=== PATIENT | female | born 1960 | race Caucasian/White ===

== ENCOUNTER → 2017-09-09 | Outpatient (CLI) | payer OTHER | END | disposition home or self-care (01) | LOC: MAMMO 09:29 | DX: Z12.31 Encounter for screening mammogram for malignant neoplasm of breast (principal) | CPT/HCPCS: 77067 ==

== ENCOUNTER → 2018-11-23 | Outpatient (CLI) | payer OTHER ==
--- NOTE | 2018-11-24 16:06 | RAD ---
DATE: 11/23/2018 EXAM: DIGITAL SCREEN BILAT W/CAD HISTORY: Routine screening COMPARISON: 01/25/2016 and 09/09/2017 mammographic images This study was interpreted with the benefit of Computerized Aided Detection (CAD). Breast Density: SCATTERED The breast parenchyma shows scattered fibroglandular densities. Breast parenchyma level B. FINDINGS: Benign calcification. No masses or distortion. IMPRESSION: Stable BI-RADS CATEGORY: 1 NEGATIVE RECOMMENDED FOLLOW-UP: 12M 12 MONTH FOLLOW-UP PQRS compliance statement: Patient information was entered into a reminder system with a target due date for the next mammogram. Mammography is a sensitive method for finding small breast cancers, but it does not detect them all and is not a substitute for careful clinical examination. A negative mammogram does not negate a clinically suspicious finding and should not result in delay in biopsying a clinically suspicious abnormality. "Our facility is accredited by the [employer] Mammography [employer]."
== END | disposition home or self-care (01) ==
LOC: MAMMO 09:59
PROVIDERS: ATTEND Family Medicine
DX: Z12.31 Encounter for screening mammogram for malignant neoplasm of breast (principal); N64.89 Other specified disorders of breast
CPT/HCPCS: 77067

== ENCOUNTER → 2019-12-15 | Outpatient (CLI) | payer OTHER ==
--- NOTE | 2019-12-15 08:26 | RAD ---
EXAM: Bilateral screening mammogram. HISTORY: 59-year-old female presents for screening mammography. TECHNIQUE: Full-field digital craniocaudal and mediolateral oblique views of both breasts are obtained for evaluation. Computer aided detection was not applied. COMPARISON: 11/23/2018 and 09/09/2017 BREAST PARENCHYMAL DENSITY: Level B - Scattered fibroglandular densities. FINDINGS: There is focal asymmetry within the left axilla which is not seen on prior studies. There are stable areas of asymmetry and nodularity elsewhere within both breasts. There are few benign calcifications. IMPRESSION: BI-RADS Category 0: Incomplete. Additional imaging needed. RECOMMENDATION: Further evaluation with a full field true lateral view and spot compression mediolateral oblique view of the left breast to assess focal asymmetry within the axilla is recommended. Sonographic imaging may also be performed if deemed indicated based on additional mammographic findings. If your mammogram demonstrates that you have dense breast tissue, which could hide abnormalities, and if you have other risk factors for breast cancer that have been identified, you might benefit from supplemental screening tests that may be suggested by your ordering physician. Dense breast tissue, in and of itself, is a relatively common condition. This information is not provided to cause undue concern, but rather to raise your awareness and to promote discussion with your physician regarding the presence of other risk factors, in addition to dense breast tissue. A report of your mammography results will be sent to you and your physician. You should contact your physician if you have any questions or concerns regarding this report. Mammography is a sensitive method for finding small breast cancers, but it does not detect them all and is not a substitute for careful clinical examination. A negative mammogram does not negate a clinically suspicious finding and should not result in delay in biopsying a clinically suspicious abnormality. PQRS compliance statement - Patient information was entered into a reminder system with a target due date for the next mammogram. "Our facility is accredited by the [employer]ammography [employer]." Electronically signed by: Ioana Anderson MD (12/15/2019 8:23 AM) [id number]
== END ==
LOC: MAMMO 09:10
PROVIDERS: ATTEND Family Medicine
DX: Z12.31 Encounter for screening mammogram for malignant neoplasm of breast (principal); N64.89 Other specified disorders of breast
CPT/HCPCS: 77067

== ENCOUNTER → 2020-01-12 | Outpatient (CLI) | payer OTHER ==
--- NOTE | 2020-01-12 10:44 | RAD ---
DATE: 01/12/2020 9:28 AM EXAM: DIGITAL DIAGNOSTIC LT HISTORY: Screening recall for asymmetry in the left axilla COMPARISON: Mammograms of 12/15/2019, 11/23/2018, 09/09/2017, 01/25/2016 and 08/02/2013. Technique: A full-field left ML view and spot compression left MLO view were obtained. Computer-aided detection was utilized in review FINDINGS: Breast Density: SCATTERED The breast parenchyma shows scattered fibroglandular densities. Breast parenchyma level B The questioned axillary asymmetry on additional mammographic views is compatible with a benign axillary lymph node. There is no persistent mammographic abnormality otherwise noted. Incidentally, variability in positioning, including variable inclusion of the left axillary tissue likely accounts for the asymmetry recalled from screening. IMPRESSION: Benign findings on additional mammographic views compatible with an axillae lymph node. No mammographic evidence of malignancy. BI-RADS CATEGORY: 2 BENIGN FINDING(S) RECOMMENDED FOLLOW-UP: 12M 12 MONTH FOLLOW-UP Annual screening mammography is recommended, unless clinically indicated sooner based on symptoms or change in physical exam. PQRS compliance statement: Patient information was entered into a reminder system with a target due date for the next mammogram. Mammography is a sensitive method for finding small breast cancers, but it does not detect them all and is not a substitute for careful clinical examination. A negative mammogram does not negate a clinically suspicious finding and should not result in delay in biopsying a clinically suspicious abnormality. "Our facility is accredited by the [employer] Mammography [employer]."
== END ==
LOC: MAMMO 08:55
PROVIDERS: ATTEND Family Medicine
DX: R92.2 Inconclusive mammogram (principal)
CPT/HCPCS: 77065

== ENCOUNTER 2020-09-30 23:50 | Emergency (ER) | payer BC, OTHER ==
[~2020-09-30] VITALS: Ht 162.6 cm; Wt 70.0 kg
[2020-10-01 01:01] VITALS: BP 147/67
[2020-10-01] MEDS ORDERED: DEXAMETHASONE 4 MG TABLET PO ONE (01:45)
--- NOTE | 2020-10-01 01:49 | PHYS DOC ---
Past Medical History Past Medical History: Arthritis, Diabetes-Type II Past Surgical History: Other Additional Past Surgical Histo: RIGHT SHOULDER Smoking Status: Never Smoker Alcohol Use: None Drug Use: None General Adult EDM: Chief Complaint: FATIGUE HPI: HPI: Patient is a 60 year old female who presents with fatigue and a diffuse rash for 3 days. States her symptoms began the day after her self-injection with Enbrel which she takes for arthritis. Denies any pruritis. She took Benadryl last night without improvement of symptoms. Also reports fever and cough. No new detergents or soaps. Denies chest pain, headache, shortness of breath, abdominal pain, or nausea/vomiting/diarrhea. No known exposure to COVID and she received her second dose of the Pfizer vaccine in 06/2020. Patient is Montene[place]in speaking only and history obtained from her son who is in the room. Review of Systems: Review of Systems: Constitutional: Reports fevers. Denies chills Eyes: Denies redness or eye pain HENT: Denies nasal congestion or sore throat Respiratory: Reports cough. Denies shortness of breath Cardiovascular: Denies chest pain or palpitations GI: Denies abdominal pain, nausea, or vomiting : Denies dysuria or hematuria Musculoskeletal: Denies back pain or joint pain Integument: Reports rash on upper and lower extremities. Denies skin lesions Neurologic: Denies headache, focal weakness or sensory changes Complete systems were reviewed and found to be within normal limits, except as documented in this note. Heart Score: C/O Chest Pain: N/A Allergies: Allergies: Allergies Coded Allergies Type Severity Reaction Last Updated Verified No Known Drug Allergies 10/01/20 No Physical Exam: PE: Constitutional: Well developed, well nourished, no acute distress, non-toxic appearance HENT: Normocephalic, atraumatic Eyes: PERRL, EOMI, conjunctiva normal, no discharge Neck: Normal range of motion, no tenderness, supple Lungs & Thorax: No respiratory distress, equal chest rise and fall. Lung clear to auscultation bilaterally. Heart regular rate and rhythm without murmur. Abdomen: Soft, no tenderness Skin: There is a diffuse maculopapular rash over her upper and lower extremities. Remainder of skin warm, dry, and intact without erythema. Back: No tenderness, no CVA tenderness Extremities: No tenderness, ROM intact, no edema Neurologic: Alert and oriented X 3, normal motor function, normal sensory function, no focal deficits noted Psychologic: Affect normal, judgment normal Current Patient Data: Vital Signs: Vital Signs Date Time Temp Pulse Resp B/P (MAP) Pulse Ox O2 Delivery O2 Flow Rate FiO2 10/01/20 01:01 101.1 102 22 147/67 95 Room Air 101.1 EKG: EKG: [] Radiology/Procedures: Radiology/Procedures: XR CHEST 1V Clinical Indication: Reason: fever, fatigue / Spl. Instructions: / History: Comparison: 9. Findings: The cardiomediastinal silhouette is normal. Lungs are clear. There is no pneumothorax. No pleural effusion is appreciated. No acute bone abnormality. IMPRESSION: No acute cardiopulmonary process. Electronically signed by: Giovani Oviedo MD (10/01/2020 2:05 AM) [facility] Course & Med Decision Making: Course & Med Decision Making 60 year old female presents with a 3 day history of diffuse rash and fatigue. Administered Tylenol and Dexamethasone. Labs and imaging negative for any acute processes. Patient stable for discharge with outpatient follow-up with PCP. Discussed findings and plan with patient, who acknowledges understanding and agreement. Dragon Disclaimer: Dragon Disclaimer: This electronic medical record was generated, in whole or in part, using a voice recognition dictation system. Departure Departure Impression: Primary Impression: Viral syndrome Additional Impressions: Fever Qualified Codes: R50.9 - Fever, unspecified Rash Suspected 2019 novel coronavirus infection Condition: STABLE Referrals: SIXTO REYNAGA MD (PCP) Patient Instructions: Fever, Adult, [id number], Rash, [id number], Viral Syndrome Additional Instructions: Definicin Se le realiz la prueba de deteccin del COVID-19 o se le diagnostic dicha enfermedad. Es lakia infeccin ocasionada por un nuevo tipo de coronavirus. En la mayora de los casos, el COVID-19 provoca sntomas similares a los del resfriado. En algunas personas, puede ocasionar sntomas ms graves, radha problemas respiratorios. No existe un tratamiento para el virus COVID-19. El cuerpo elimina la infeccin con el tiempo. El cuidado personal ayuda a aliviar el malestar. Pasos que debe seguir 1. Cuidados personales Descanse cuando sea necesario. Los hbitos saludables pueden ayudarlo a sentirse mejor. Algunas medidas para lograr cambios incluyen lo siguiente: - Elija alimentos saludables, radha frutas y verduras. Saloni abundante cantidad de agua ebony todo el da. - Duerma ashish por la noche. - Si fuma, intente no hacerlo. Lillie ayudar a mejorar la respiracin. - Evite el alcohol. 2. Mantenga sanos a los dems El virus puede contagiarse a otras personas. Cada vez que estornuda o tose, se liberan gotitas. Las gotitas pueden entrar en la boca, la nariz o los ojos de las pers onas que se encuentran cerca de usted y ocasionar la infeccin. Para reducir las probabilidades de contagiar el virus COVID-19 a otros, tenga en cuenta lo siguiente: - Qudese en casa el tiempo que el mdico se lo indique. Es posible que deba quedarse en casa hasta que la enfermedad desaparezca. Salga nicamente para recibir atencin mdica o en juliet de urgencia. - Evite las reas pblicas, los eventos o el transporte pblico. No reanude las actividades laborales o escolares hasta que el mdico lo autorice. - Llame previamente si necesita asistir a un centro mdico. Avise que es posible que haya contrado COVID-19. Lillie ayudar a que le indiquen adonde debe dirigirse. Idalmis pueden pedirle que use lakia mscara facial cuando vaya al consultorio. Si llama a los servicios de asistencia mdica de urgencias, avseles que es posible que haya contrado COVID-19. Mientras est en casa: - Evite el contacto directo con otras personas. Mantngase a lakia distancia aproximada de 2 metros. Si es posible, pasen la mayor parte del tiempo en laws separadas. - Use lakia mscara facial si estar en contacto directo con otras personas, por ejemplo, si compartir lakia habitacin o un vehculo. - Pida a alguien que limpie las superficies comunes de la casa. Limpie picaportes, mesadas y lavamanos con limpiadores domsticos todos los yee. - Al toser o estornudar, cbrase con un pauelo de papel. Despus de usarlo, deschelo de inmediato. Si no tiene un pauelo de papel, tosa o estornude en el pliegue del codo. - Lvese las nadege con frecuencia. Lvese las nadege despus de estornudar o toser. Lvese con agua y jabn ebony, al menos, 20 segundos. Si no dispone de agua y jabn, use un limpiador de nadege a base de alcohol. - No cocine para otros. Evite compartir objetos personales, radha tenedores, cucharas o cepillos de dientes. - Mientras est enfermo, evite el contacto directo con las mascotas. No hay indicios de si el virus se transmite a las mascotas. Esta es lakia medida de seguridad que debe tenerse en cuenta hasta que se sepa ms acerca de scooby virus. El aislamiento puede ser frustrante. La interaccin social puede ayudar. Mantng ase en contacto con amigos y familiares por telfono u otros medios tecnolgicos. Puede interactuar con otras personas en el hogar, darron mantenga lakia distancia rodriguez de aproximadamente 2 metros. Seguimiento Las pruebas para confirmar la presencia del COVID-19 pueden demorar algunos yee. Es posible que deba seguir los pasos mencionados anteriormente hasta que estn los result ados de las pruebas. Lo llamarn del consultorio mdico para saber si diaz habido algn cambio en stevens yris. Tambin le avisarn cuando pueda volver a estar cerca de otras personas. Problemas a los que debe estar atento Comunquese con el mdico si no se recupera segn lo previsto o si tiene problemas radha los siguientes: - Dificultad para respirar - Dolor de pecho - Empeoramiento de los sntomas Si ines que tiene lakia urgencia, llame a los servicios de asistencia mdica de urgencias de inmediato. As taken from [facility] SIXTO PRATER DO Oct 01, 2020 01:49
[2020-10-01] MEDS ORDERED: ACETAMINOPHEN 500 MG TABLET PO ONE (02:00)
--- NOTE | 2020-10-01 02:07 | RAD ---
XR CHEST 1V Clinical Indication: Reason: fever, fatigue / Spl. Instructions: / History: Comparison: 9. Findings: The cardiomediastinal silhouette is normal. Lungs are clear. There is no pneumothorax. No pleural eff usion is appreciated. No acute bone abnormality. IMPRESSION: No acute cardiopulmonary process. Electronically signed by: Giovani Oviedo MD (10/01/2020 2:05 AM) [facility]
[2020-10-01 03:10] LABS: BILIRUBIN,URINE NEGATIVE (NEG); CLARITY,URINE CLEAR; COLOR,URINE YELLOW; NITRITE,URINE NEGATIVE (NEG); PH,URINE 6.5 (<5.0-8.0); PROTEIN,URINE NEGATIVE (NEG-TRACE); UROBILINOGEN,URINE 0.2 mg/dL (0.2 mg/dL)
[2020-10-01 03:22] LABS: BACTERIA,URINE FEW /HPF (0-FEW)
--- NOTE | 2020-10-02 10:48 | NUR ---
IP: Informed pt of negative covid test. Pt verbalized understanding.
== END 2020-10-01 03:39 | disposition home or self-care (01) ==
LOC: ER 23:50
DX: B34.9 Viral infection, unspecified (principal); Z20.822 Contact with and (suspected) exposure to COVID-19; R21 Rash and other nonspecific skin eruption; E11.9 Type 2 diabetes mellitus without complications
CPT/HCPCS: 71045; 81001; 87086; 99284; U0003; U0005